=== PATIENT | male | born 1965 | race Caucasian/White ===

== ENCOUNTER 2018-03-20 21:02 | Emergency (ER) | payer SELFPAY ==
[~2018-03-20] VITALS: Ht 175.3 cm; Wt 70.0 kg
[2018-03-20 21:07] VITALS: BP 126/84
--- NOTE | 2018-03-20 21:07 | NUR ---
PATIENT TRIAGED. VSS STABLE. SENT TO ER LOBBY.
--- NOTE | 2018-03-21 00:48 | NUR ---
PT TAKEN TO BED 1
--- NOTE | 2018-03-21 00:50 | NUR ---
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 Pain 9/10 sharp; AAOX4, PERRL, WITH EVEN AND STEADY GAIT; LUNGS CLEAR BL, BREATHING UNLABORED; HR EVEN AND REGULAR, BL PERIPHERAL PULSES PRESENT; BS ACTIVE X4, NO TENDERNESS TO PALPATION, NO HEPATOSPLENOMEGALLY PALPATED, RESONANT TO PERCUSSION; PT DENIES ANY FEVER, CP, SOB, OR COUGH AT THIS TIME;VSS; PATIENT POSITIONED FOR COMFORT; HOB ELEVATED; BEDRAILS UP X2; BED DOWN.
[2018-03-21] MEDS ORDERED: IBUPROFEN 600 MG TAB PO ONE (02:05)
[2018-03-21] MEDS ORDERED: AMOXIL/CLAVULANATE 875/125 MG 1 TAB PO ONE (02:05)
[2018-03-21] MEDS ORDERED: BACITRACIN OINT 500 UNITS/GM PKT TP ONE (02:05)
--- NOTE | 2018-03-21 02:37 | NUR ---
AWAITING D/C PAPERWORK FROM [facility].
[2018-03-21] MEDS ORDERED: AMOXIL/CLAVULANATE 875/125 MG 1 TAB ONE (03:03)
--- NOTE | 2018-03-21 03:41 | NUR ---
AWAITING D/C INSTRUCTIONS FROM EDMD.
[2018-03-21 04:01] VITALS: BP 140/75
--- NOTE | 2018-03-21 04:01 | NUR ---
Patient discharged with v/s stable. Written and verbal after care instructions given and explained. Patient alert, oriented and verbalized understanding of instructions. Ambulatory with steady gait. All questions addressed prior to discharge. ID band removed. Patient advised to follow up with PMD. Rx of IBUPROFEN, AUGMENTIN, AND BACITRACIN given. Patient educated on indication of medication including possible reaction and side effects. Opportunity to ask questions provided and answered.
== END 2018-03-21 04:01 | disposition home or self-care (01) ==
LOC: MED 21:02
DX: S01.511A Laceration without foreign body of lip, initial encounter (principal); E11.9 Type 2 diabetes mellitus without complications; W31.9XXA Contact with unspecified machinery, initial encounter; Y93.89 Activity, other specified; Y92.69 Other specified industrial and construction area as the place of occurrence of the external cause; Y99.0 Civilian activity done for income or pay
CPT/HCPCS: 99284